=== PATIENT | male | born 1980 ===

== ENCOUNTER 2017-09-30 09:07 | Emergency (ER) | payer OTHER ==
[2017-09-30 09:17] VITALS: RESP 18
--- NOTE | 2017-09-30 09:57 | C.PDOC ---
History Of Present Illness 37 yr old male presents to the ER with new onset of right side neck and right scalp mass for the past 1 week. Patient states the pain is only with scalp mass. Patient denies redness, discharge, trauma, weight loss, fever, vision changes, weakness or numbness. Denies smoking. NEW ONSET R NECK AND R SCALP MASS X 1 WEEK. PS PAIN ONLY W SCALP. NO REDNESS, DC , TRAUMA. DENIES WT LOSS, OTHER ASSOC SX. PMH NEG. DENIES SMOKING. EXAM NAD NODES ? R POST CERVICAL NODE VS UNK MASS FIRM MOBILE NONTEND. NO SUBMAND, SUBMENTAL ANT CERV, SUBCLAV, AURICULAR, OCCIPTAL, AXILLARY MASSES SKIN +R SCALP 1 CM MASS W LOCAL TEND, MIN LOCAL ERYTHEMA. +FLUCTUANCE NO DC REMAINDER NEG Time Seen by Provider: 09/30/17 09:34 Chief Complaint (Nursing): Abnormal Skin Integrity History Per: Patient History/Exam Limitations: no limitations Onset/Duration Of Symptoms: Days (1 week) Past Medical History Reviewed: Historical Data, Nursing Documentation, Vital Signs Vital Signs: Last Vital Signs Temp 98.2 F 09/30/17 12:46 Pulse 72 09/30/17 12:46 Resp 18 09/30/17 12:46 BP 124/78 09/30/17 12:46 Pulse Ox 99 09/30/17 15:12 Family History: States: No Known Family Hx - Social History Hx Alcohol Use: Yes Hx Substance Use: No - Immunization History Hx Tetanus Toxoid Vaccination: No Hx Influenza Vaccination: No Hx Pneumococcal Vaccination: No Review Of Systems Except As Marked, All Systems Reviewed And Found Negative. Constitutional: Negative for: Fever, Weight loss Eyes: Negative for: Vision Change Musculoskeletal: Positive for: Other ((+) Right side neck and right scalp mass) Neurological: Negative for: Weakness, Numbness Physical Exam - Physical Exam Appears: Non-toxic, No Acute Distress Skin: Warm, Dry, No Rash, Other ((+) Right scalp 1cm mass with local tenderness , minimal local erythema. +Fluctuance. No discharge.) Head: Atraumatic, Normacephalic Eye(s): bilateral: Normal Inspection, PERRL, EOMI Oral Mucosa: Moist Lymphatic: Other (NODES ? R POST CERVICAL NODE VS UNK MASS FIRM MOBILE NONTEND. NO SUBMAND, SUBMENTAL ANT CERV, SUBCLAV, AURICULAR, OCCIPTAL, AXILLARY MASSES) Respiratory: Normal Breath Sounds Extremity: Normal ROM, No Swelling Neurological/Psych: Oriented x3, Normal Speech, Normal Motor ED Course And Treatment - Laboratory Results Result Diagrams: 09/30/17 09:53 09/30/17 09:53 O2 Sat by Pulse Oximetry: 99 (RA) Pulse Ox Interpretation: Normal - CT Scan/US CT - Head Other Rad Studies (CT/US): Read By Radiologist, Radiology Report Reviewed CT/US Interpretation: PROCEDURE: CT HEAD WITH AND WITHOUT CONTRAST. HISTORY: R SCALP MASS. COMPARISON: None available. TECHNIQUE: Axial computed tomography images were obtained through the head/brain with and without intravenous contrast enhancement. Contrast dose: 100 mL Visipaque. Radiation dose: Total exam DLP = 872.60 mGy-cm. This CT exam was performed using one or more of the following dose reduction techniques: Automated exposure control, adjustment of the mA and/or kV according to patient size, and/or use of iterative reconstruction technique. FINDINGS: HEMORRHAGE: No intracranial hemorrhage. BRAIN: Palomo-white matter differentiation is preserved. There is no mass, mass effect or abnormal extra-axial fluid collection. There are symmetric calcifications in bilateral basal ganglia. VENTRICLES: The ventricles are normal in size, shape and configuration. CALVARIUM: The skull base and calvarium are normal. No evidence of bony erosion or destruction. SINUSES: There is mild mucosal thickening in the right maxillary sinus. The remaining included paranasal sinuses are clear. MASTOID AIR CELLS: Unremarkable as visualized. No mastoid effusion. OTHER FINDINGS: There is abnormal soft-tissue overlying the right high parietal calvarium with focal skin thickening. No evidence of drainable fluid collection. IMPRESSION: 1. No acute intracranial abnormality. 2. Abnormal soft-tissue overlying the right high parietal calvarium with overlying focal skin thickening without drainable fluid collection or abscess. Findings could be related to cellulitis and phlegmon in the appropriate clinical setting. No evidence of bony erosion to suggest osteomyelitis. Clinical correlation, follow-up and short-term imaging follow-up is recommended to ensure resolution. CT - Neck w/ Contrast Other Rad Studies (CT/US): Read By Radiologist, Radiology Report Reviewed CT/US Interpretation: PROCEDURE: CT NECK WITH CONTRAST. HISTORY: R NECK MASS RO NODE VS ABSCESS. COMPARISON: None. TECHNIQUE: CT of the neck with intravenous contrast. Coronal and sagittal reformats generated. Intravenous contrast dose: 100 mL Visipaque. Radiation dose: DLP 373.08 mGy-cm. This CT exam was performed using one or more of the following dose reduction techniques : Automated exposure control, adjustment of the mA and/or kV according to patient size, and/or use of iterative reconstruction technique. FINDINGS: NASOPHARYNX: Unremarkable. SUPRAHYOID NECK: No evidence of mass or abnormal enhancement in the oropharynx, oral cavity, parapharyngeal space and retropharyngeal space. INFRAHYOID NECK: No evidence of mass or abnormal enhancement in the larynx, hypopharynx, and supraglottic space. Vocal cords intact. MASS: None. GLANDS: Parotid and submandibular glands unremarkable. Normal size thyroid gland, without nodule. LYMPH NODES: There are asymmetrical enlarged right posterior triangle lymph nodes at the site of marker. CERVICAL SPINE: No fracture or focal lesion. VASCULAR STRUCTURES: Unremarkable. OTHER FINDINGS: None. IMPRESSION: No evidence of mass, abnormal enhancement, or abscess. Asymmetrically enlarged right posterior triangle lymph nodes at the site of marker in the right neck. These are nonspecific and may be reactive, infectious or inflammatory in etiology. Clinical correlation and follow-up is advised. Reevaluation Time: 12:27 Reassessment Condition: Unchanged (NO ACUTE FINDINGS CT. ADVISED CLINIC FU) Medical Decision Making Medical Decision Making: PLAN: * CT - Head, Neck Soft Tissue * CBC * CMP Disposition Counseled Patient/Family Regarding: Studies Performed, Diagnosis, Need For Followup - Disposition Referrals: [facility] [Outside] [facility] [Outside] Disposition: HOME/ ROUTINE Disposition Time: 12:28 Condition: GOOD Instructions: Lymphadenopathy (ED) Forms: [employer] (Estonian) Print Language: IVORIAN - Clinical Impression Clinical Impression: Lymphadenopathy of head and neck region - Scribe Statement The provider has reviewed the documentation as recorded by the Yadi Mercado Provider Attestation: All medical record entries made by the Yadi were at my direction and personally dictated by me. I have reviewed the chart and agree that the record accurately reflects my personal performance of the history, physical exam, medical decision making, and the department course for this patient. I have also personally directed, reviewed, and agree with the discharge instructions and disposition.
[2017-09-30 10:03] LABS: BASO % 0.5 % (0.0-2.0); EOS # 0.4 K/uL (0.0-0.7); HEMATOCRIT 44.4 % (35.0-51.0); LYMPH # 2.2 K/uL (1.0-4.3); LYMPH % 38.1 % (20.0-40.0); MEAN CELL VOLUME 91.8 fL (80.0-94.0); MEAN CORPUSCULAR HEMOGLOBIN 31.9 pg (27.0-31.0); MEAN CORPUSCULAR HGB CONC 34.7 g/dL (33.0-37.0); MEAN PLATELET VOLUME 9.4 fL (7.2-11.7); MONO # 0.6 K/uL (0.0-0.8); MONO % 9.6 % (0.0-10.0); NRBC % 0.1 % (0.0-2.0); RED CELL DISTRIBUTION WIDTH 12.8 % (11.5-14.5); WHITE BLOOD COUNT 5.8 K/uL (4.8-10.8)
[2017-09-30 10:10] LABS: ALKALINE PHOSPHATASE 65 U/L (38-126); ALT/SGPT 45 U/L (21-72); AST/SGOT 34 U/L (17-59); BILIRUBIN,TOTAL 0.7 mg/dL (0.2-1.3); BLOOD UREA NITROGEN 16 mg/dL (9-20); CALCIUM 8.5 mg/dl (8.6-10.4); CARBON DIOXIDE 27 mmol/L (22-30); CHLORIDE 102 mmol/L (98-107); GFR AFRICAN-AMERICAN > 60; GLUCOSE,RANDOM 82 mg/dL (75-110); POTASSIUM 3.9 mmol/L (3.6-5.2); SODIUM 137 mmol/L (132-148); TOTAL PROTEIN 8.4 g/dL (6.3-8.3)
[2017-09-30 10:14] LABS: ALB/GLOB RATIO 1.1 (1.0-2.1)
[2017-09-30] MEDS ORDERED: Iodixanol 320 MG/ML 100 ML BOTTLE IV ONE (11:05)
--- NOTE | 2017-09-30 12:00 | CT ---
PROCEDURE: CT HEAD WITH AND WITHOUT CONTRAST HISTORY: R SCALP MASS COMPARISON: None available. TECHNIQUE: Axial computed tomography images were obtained through the head/brain with and without intravenous contrast enhancement. Contrast dose: 100 mL Visipaque Radiation dose: Total exam DLP = 872.60 mGy-cm. This CT exam was performed using one or more of the following dose reduction techniques: Automated exposure control, adjustment of the mA and/or kV according to patient size, and/or use of iterative reconstruction technique. FINDINGS: HEMORRHAGE: No intracranial hemorrhage. BRAIN: Palomo-white matter differentiation is preserved. There is no mass, mass effect or abnormal extra-axial fluid collection. There are symmetric calcifications in bilateral basal ganglia. VENTRICLES: The ventricles are normal in size, shape and configuration. CALVARIUM: The skull base and calvarium are normal. No evidence of bony erosion or destruction. SINUSES: There is mild mucosal thickening in the right maxillary sinus. The remaining included paranasal sinuses are clear. MASTOID AIR CELLS: Unremarkable as visualized. No mastoid effusion. OTHER FINDINGS: There is abnormal soft-tissue overlying the right high parietal calvarium with focal skin thickening. No evidence of drainable fluid collection. IMPRESSION: 1. No acute intracranial abnormality. 2. Abnormal soft-tissue overlying the right high parietal calvarium with overlying focal skin thickening without drainable fluid collection or abscess. Findings could be related to cellulitis and phlegmon in the appropriate clinical setting. No evidence of bony erosion to suggest osteomyelitis. Clinical correlation, follow-up and short-term imaging follow-up is recommended to ensure resolution.
--- NOTE | 2017-09-30 12:08 | CT ---
PROCEDURE: CT NECK WITH CONTRAST HISTORY: R NECK MASS RO NODE VS ABSCESS COMPARISON: None TECHNIQUE: CT of the neck with intravenous contrast. Coronal and sagittal reformats generated. Intravenous contrast dose: 100 mL Visipaque Radiation dose: DLP 373.08 mGy-cm This CT exam was performed using one or more of the following dose reduction techniques: Automated exposure control, adjustment of the mA and/or kV according to patient size, and/or use of iterative reconstruction technique. FINDINGS: NASOPHARYNX: Unremarkable. SUPRAHYOID NECK: No evidence of mass or abnormal enhancement in the oropharynx, oral cavity, parapharyngeal space and retropharyngeal space. INFRAHYOID NECK: No evidence of mass or abnormal enhancement in the larynx, hypopharynx, and supraglottic space. Vocal cords intact. MASS: None. GLANDS: Parotid and submandibular glands unremarkable. Normal size thyroid gland, without nodule. LYMPH NODES: There are asymmetrical enlarged right posterior triangle lymph nodes at the site of marker. CERVICAL SPINE: No fracture or focal lesion. VASCULAR STRUCTURES: Unremarkable. OTHER FINDINGS: None. IMPRESSION: No evidence of mass, abnormal enhancement, or abscess. Asymmetrically enlarged right posterior triangle lymph nodes at the site of marker in the right neck. These are nonspecific and may be reactive, infectious or inflammatory in etiology. Clinical correlation and follow-up is advised.
[2017-09-30 12:46] VITALS: BP 124/78; PULSE 72; TEMP 98.2
[2017-09-30 15:12] VITALS: O2SAT 99
== END 2017-09-30 12:47 | disposition home or self-care (01) ==
LOC: C.ER 09:07
DX: R59.1 Generalized enlarged lymph nodes (principal)
CPT/HCPCS: 70470; 70491; 80053; 85025; 99283; Q9967